=== PATIENT | male | born 1980 ===

== ENCOUNTER 2016-11-06 02:19 | Emergency (ER) | payer OTHER ==
[~2016-11-06] VITALS: Ht 170.2 cm; Wt 74.5 kg
[2016-11-06 02:34] VITALS: Ht 170.2 cm; Wt 74.5 kg
--- NOTE | 2016-11-06 03:54 | ERA ---
ER Documentation Chief Complaint Date/Time DATE: 11/06/16 TIME: 03:54 Chief Complaint Left sided abdominal pain HPI The patient is a 35-year-old male, presenting with intermittent left-sided abdominal pain for 1 week. He was seen by his physician, have blood drawn and is awaiting for results. He came to the ER because of recurrent pain tonight, he complains of pain after eating, denies fever, weight loss, chest pain, dyspnea, nausea, vomiting, dysuria, diarrhea, constipation. He smokes, denies drinking, smokes marijuana Past medical history/surgical history: None ROS All systems reviewed and are negative except as per history of present illness. Medications Home Meds Active Scripts Pantoprazole* (Protonix*) 40 Mg Tablet.dr, 40 MG PO DAILY, #20 TAB Prov:JUANJOSE CAZARES MD 11/06/16 Hydrocodone/Acetaminophen (Falls 5-325 Tablet) 1 Each Tablet, 1 EACH PO Q6, #10 TAB Prov:JUANJOSE CAZARES MD 11/06/16 Allergies Allergies: Coded Allergies: No Known Allergy (Unverified , 11/06/16) PMhx/Soc Medical and Surgical Hx: pt denies Medical Hx, pt denies Surgical Hx Hx Alcohol Use: Yes Hx Substance Use: Yes (marijuana) Hx Tobacco Use: Yes Smoking Status: Current every day smoker Physical Exam Vitals Vital Signs Date Time Temp Pulse Resp B/P Pulse Ox O2 Delivery O2 Flow Rate FiO2 11/06/16 04:54 91 17 137/86 96 Room Air 11/06/16 02:34 97.1 91 20 154/96 98 Physical Exam Const: No acute distress. Head: Atraumatic. Eyes: Normal Conjunctiva. ENT: Normal External Ears, Nose and Mouth. Neck: Full range of motion. No meningismus. Resp: Clear to auscultation bilaterally. Cardio: Regular rate and rhythm. Abd: Soft, non distended, normal bowel sounds, Mild and vague left- sided abdominal tenderness. No right lower quadrant, right upper quadrant, epigastric, CVA tenderness Skin: No petechiae or rashes. Back: No midline or flank tenderness. Ext: No cyanosis, or edema. Neur: Awake and alert. No focal deficit Psych: Normal Mood and Affect. Result Diagram: 11/06/16 0354 11/06/16 0354 Results 24 hrs Laboratory Tests Test 11/06/16 03:54 11/06/16 04:14 White Blood Count 15.410^3/ul Red Blood Count 4.3010^6/ul Hemoglobin 14.9g/dl Hematocrit 41.8% Mean Corpuscular Volume 97.2fl Mean Corpuscular Hemoglobin 34.7pg Mean Corpuscular Hemoglobin Concent 35.6g/dl Red Cell Distribution Width 12.8% Platelet Count 06787^3/UL Mean Platelet Volume 9.7fl Neutrophils % 75.0% Lymphocytes % 19.4% Monocytes % 4.1% Eosinophils % 0.8% Basophils % 0.2% Nucleated Red Blood Cells % 0.0/100WBC Neutrophils # (Manual) 11.510^3/ul Lymphocytes # 3.010^3/ul Monocytes # 0.610^3/ul Eosinophils # 0.110^3/ul Basophils # 0.010^3/ul Nucleated Red Blood Cells # 0.010^3/ul Sodium Level 143mmol/L Potassium Level 3.7mmol/L Chloride Level 106mmol/L Carbon Dioxide Level 26mmol/L Anion Gap 15 Blood Urea Nitrogen 16mg/dl Creatinine 0.86mg/dl Glucose Level 111mg/dl Calcium Level 9.9mg/dl Total Bilirubin 0.2mg/dl Direct Bilirubin 0.00mg/dl Indirect Bilirubin 0.2mg/dl Aspartate Amino Transf (AST/SGOT) 21IU/L Alanine Aminotransferase (ALT/SGPT) 43IU/L Alkaline Phosphatase 96IU/L Total Protein 7.4g/dl Albumin 4.4g/dl Globulin 3.00g/dl Albumin/Globulin Ratio 1.46 Lipase 93U/L Bedside Urine pH (LAB) 5.5 Bedside Urine Protein (LAB) Negative Bedside Urine Glucose (UA) Negative Bedside Urine Ketones (LAB) Negative Bedside Urine Blood Negative Bedside Urine Nitrite (LAB) Negative Bedside Urine Leukocyte Esterase (L Negative Current Medications Medications (Trade) Dose Ordered Sig/[place] Route PRN Reason Start Time Stop Time Status Last Admin Dose Admin Sodium Chloride (NS) 1,000 ml @ 1,000 mls/hr Q1H STAT IV 11/06/16 03:58 11/06/16 04:57 DC 11/06/16 04:06 Morphine Sulfate (morphine) 4 mg ONCE STAT IV 11/06/16 03:58 11/06/16 04:00 DC 11/06/16 04:06 Ondansetron HCl (Zofran Inj) 4 mg ONCE STAT IV 11/06/16 03:58 11/06/16 04:00 DC 11/06/16 04:06 Hydromorphone HCl (Dilaudid) 1 mg ONCE ONCE IV 11/06/16 04:25 11/06/16 04:26 DC 11/06/16 04:30 Procedures/MDM [place] [address] Radiology Main Line: [phone] DIAGNOSTIC IMAGING REPORT Patient: VINCE POP : 1980 Age: 36 Sex: M MR #: [id number] DOS: 11/06/16357 Ordering MD: JUANJOSE CAZARES MD Location: E/R Room/Bed: PROCEDURE: XR Chest. CLINICAL INDICATION: Abdominal pain TECHNIQUE: AP Portable chest. COMPARISON: No pertinent prior examinations were submitted for comparison. FINDINGS: The cardiomediastinal silhouette is normal. The lungs are clear. The osseous structures are unremarkable. IMPRESSION: No acute findings. RPTAT: HIKT .Elías Gibbs MD, MD Date Time Electronically viewed and signed by .Elías Gibbs MD, MD on 11/06/2016 04:35 .T/ CC: JUANJOSE CAZARES MD [place] [address] Radiology Main Line: [phone] DIAGNOSTIC IMAGING REPORT Patient: VINCE POP : 1980 Age: 36 Sex: M MR #: [id number] DOS: 11/06/16357 Ordering MD: JUANJOSE CAZARES MD Location: E/R Room/Bed: PROCEDURE: CT of the abdomen and pelvis without contrast CLINICAL INDICATION: Abdominal pain. TECHNIQUE: Spiral CT images through the abdomen and pelvis without the use of oral and without the use of intravenous contrast. The administered radiation dose is CTDI 8.9 and DLP 561.85. One or more of the following dose reduction techniques were used: automated exposure control, adjustment of the mA and/or kV according to patient size, or use of iterative reconstruction technique. COMPARISON: None FINDINGS: The study is limited by lack of intravenous contrast. Lower thorax: Slight dependent atalectasis of the lung bases is seen.. Liver: The liver is unremarkable in appearance. Biliary: The gallbladder is distended without visible radiopaque stones.. No biliary ductal dilatation is seen. Pancreas: Unremarkable. No focal mass or inflammatory process. Spleen: The spleen is unremarkable in appearance Adrenal glands: Unremarkable in appearance. No focal nodule.. Genitourinary: No hydronephrosis or renal calculi are seen.. Mild wall prominence of the urinary bladder is likely due to under-distension.. Gastrointestinal Tract: There is no evidence for bowel obstruction, free air, or abscess. The appendix is unremarkable in appearance. Lymph nodes: No visible pathologic lymphadenopathy.. Vascular structures: The aorta and mesenteric vessels are unremarkable.. Peritoneal cavity: Unremarkable mesentery and peritoneum.. No mass, edema, or ascites. Reproductive Organs: Unremarkable in appearance.. Musculoskeletal: There is minimal degenerative change of the spine. Tiny fat- containing umbilical hernia. Small fat-containing right inguinal hernia. IMPRESSION: Slightly distended gallbladder without visible stones or ductal dilatation. Tiny fat-containing umbilical and right inguinal hernias.. RPTAT: HLBE Physician Raimundo Date Time Electronically viewed and signed by Physician Raimundo on 11/06/2016 05 :00 LE/ CC: JUANJOSE CAZARES MD MEDICAL MAKING DECISION: The patient is a 36-year-old male, presenting with acute left-sided abdominal pain of unclear etiology, acute leukocytosis of unclear etiology most likely due to acute distress/margination. He was treated with 1 L normal saline for clinical dehydration, morphine 4 mg IV and Dilaudid 1 mg IV for pain and Zofran formula IV for nausea with good response. The differential diagnoses considered include but are not limited to renal colic , musculoskeletal pain, cholelithiasis, cholecystitis, cystitis, pancreatitis, hepatitis, gastritis, peptic ulcer disease, gastric ulcer, appendicitis, diverticulitis, cholangitis, choledocholithiasis, partial small bowel obstruction. Departure Diagnosis: Primary Impression: Abdominal pain Condition: Good Comments He was discharged with Protonix and Falls I discussed the findings with the patient. I advised the patient to follow-up with the [facility] machine operator Dr Gupta for further evaluation and probable endoscopy in about 1-2 days, sooner if needed and return if any concern. The patient's blood pressure was elevated (>120/80) but appears stable without evidence of hypertension emergency or urgency. The patient was counseled about the risks of hypertension and urged to pursue outpatient monitoring and therapy within a week with their primary care physician. JUANJOSE CAZARES MD Nov 06, 2016 03:54
[2016-11-06] MEDS ORDERED: SOD CHLORIDE 0.9% 1,000 ML IV STA (03:58)
[2016-11-06] MEDS ORDERED: ONDANSETRON 4 MG INJ IV STA (03:58)
[2016-11-06] MEDS ORDERED: morphine 4 MG/ML VIAL IV STA (03:58)
[2016-11-06 04:08] LABS: URINE BLOOD (Dip) POC Negative (NEGATIVE)
[2016-11-06 04:24] LABS: BASOPHILS % 0.2 % (0.0-2.0); EOSINOPHILS # 0.1 10^3/ul (0.0-0.5); EOSINOPHILS % 0.8 % (0.0-7.0); HEMATOCRIT 41.8 % (42.0-52.0); HEMOGLOBIN 14.9 g/dl (14.0-18.0); LYMPHOCYTES % 19.4 % (15.0-51.0); MEAN CORPUSCULAR HEMOGLOBIN 34.7 pg (29.0-33.0); MEAN CORPUSCULAR HGB CONC 35.6 g/dl (32.0-37.0); MEAN CORPUSCULAR VOLUME 97.2 fl (82.0-101.0); MEAN PLATELET VOLUME 9.7 fl (7.4-10.4); MONOCYTE # 0.6 10^3/ul (0.3-0.9); MONOCYTES % 4.1 % (0.0-11.0); PLATELET COUNT 260 10^3/UL (140-415); RED CELL DISTRIBUTION WIDTH 12.8 % (11.5-14.5); WHITE BLOOD COUNT 15.4 10^3/ul (4.8-10.8)
[2016-11-06] MEDS ORDERED: HYDROmorphONE 1 MG/ML SYG IV ONE (04:25)
--- NOTE | 2016-11-06 04:35 | RADRPT ---
PROCEDURE: XR Chest. CLINICAL INDICATION: Abdominal pain TECHNIQUE: AP Portable chest. COMPARISON: No pertinent prior examinations were submitted for comparison. FINDINGS: The cardiomediastinal silhouette is normal. The lungs are clear. The osseous structures are unrema rkable. IMPRESSION: No acute findings. RPTAT: HIKT .Elías Gibbs MD, MD Date Time Electronically viewed and signed by .Elías Gibbs MD, MD on 11/06/2016 04:35 .T/
[2016-11-06 04:42] LABS: ALBUMIN 4.4 g/dl (3.3-4.9); ALBUMIN/GLOBULIN RATIO 1.46; BILIRUBIN,INDIRECT 0.2 mg/dl (0-1.1); BILIRUBIN,TOTAL 0.2 mg/dl (0.2-1.3); CALCIUM 9.9 mg/dl (8.4-10.2); CREATININE 0.86 mg/dl (0.61-1.24); POTASSIUM 3.7 mmol/L (3.5-5.1); TOTAL PROTEIN 7.4 g/dl (6.1-8.1)
[2016-11-06 04:54] VITALS: BP 137/86; PULSE 91; RESP 17
--- NOTE | 2016-11-06 05:00 | RADRPT ---
PROCEDURE: CT of the abdomen and pelvis without contrast CLINICAL INDICATION: Abdominal pain. TECHNIQUE: Spiral CT images through the abdomen and pelvis without the use of oral and without the use of intravenous contrast. The administered radiation dose is CTDI 8.9 and DLP 561.85. One or mo re of the following dose reduction techniques were used: automated exposure control, adjustment of t he mA and/or kV according to patient size, or use of iterative reconstruction technique. COMPARISON: None FINDINGS: The study is limited by lack of intravenous contrast. Lower thorax: Slight dependent atalectasis of the lung bases is seen.. Liver: The liver is unremarkable in appearance. Biliary: The gallbladder is distended without visible radiopaque stones.. No biliary ductal dilatati on is seen. Pancreas: Unremarkable. No focal mass or inflammatory process. Spleen: The spleen is unremarkable in appearance Adrenal glands: Unremarkable in appearance. No focal nodule.. Genitourinary: No hydronephrosis or renal calculi are seen.. Mild wall prominence of the urinary hien dder is likely due to under-distension.. Gastrointestinal Tract: There is no evidence for bowel obstruction, free air, or abscess. The appen abel is unremarkable in appearance. Lymph nodes: No visible pathologic lymphadenopathy.. Vascular structures: The aorta and mesenteric vessels are unremarkable.. Peritoneal cavity: Unremarkable mesentery and peritoneum.. No mass, edema, or ascites. Reproductive Organs: Unremarkable in appearance.. Musculoskeletal: There is minimal degenerative change of the spine. Tiny fat-containing umbilical he rnia. Small fat-containing right inguinal hernia. IMPRESSION: Slightly distended gallbladder without visible stones or ductal dilatation. Tiny fat-containing umbilical and right inguinal hernias.. RPTAT: [facility] Physician Raimundo Date Time Electronically viewed and signed by Mya Al Physician on 11/06/2016 05:00 ELROY/
[2016-11-06] MEDS ORDERED: HYDR-906 PO (05:11)
[2016-11-06] MEDS ORDERED: PANT40TA3 PO (05:12)
== END 2016-11-06 05:26 | disposition home or self-care (01) ==
LOC: E/R 02:19
DX: R10.84 Generalized abdominal pain (principal); F17.210 Nicotine dependence, cigarettes, uncomplicated
CPT/HCPCS: 36415; 71010; 74176; 80053; 81003; 83690; 85025; 96374; 96375; J1170; J2270; J2405; J7030; Z7502